=== PATIENT | male | born 1950 | race Caucasian/White ===

== ENCOUNTER 2021-11-15 15:29 | Observation (INO) ==
[2021-11-15 16:15] LABS: ABS Eosinophils 0.1 10^3/ul (0-0.6); ABS Lymphocytes 0.8 10^3/ul (1.0-4.8); ABS Monocytes 0.8 10^3/ul (0-0.8); ABS Neutrophils 8.3 10^3/ul (1.5-7.7); Eosinophil % 0.7 %; Hematocrit 43 % (42-52); Hemoglobin 15.1 g/dL (14.0-18.0); Lymphocyte % 8.2 %; Mean Corpuscular HGB Conc 35 g/dL (31-36); Mean Corpuscular Hemoglobin 30 pg (27-31); Mean Corpuscular Volume 86 fL (80-94); Nucleated Red Blood Cells % 0.1; Platelet Count 227 10^3/uL (150-450); Red Cell Distribution Width 14 % (10-15)
[2021-11-15 17:47] LABS: ALT 13 U/L (7-52); Albumin 4.4 g/dL (3.2-5.2); Albumin/Globulin Ratio 1.5 (1-3); Alkaline Phosphatase 66 U/L (35-149); Blood Urea Nitrogen 23 mg/dL (6-24); CO2 Carbon Dioxide 24 mmol/L (22-32); Chloride 104 mmol/L (101-111); Glucose 120 mg/dL (70-100); Sodium 137 mmol/L (135-145); Total Protein 7.4 g/dL (6.4-8.9); eGFR CKD-EPI 83.5 (>60)
[2021-11-15 17:54] LABS: Anion Gap 9 mmol/L (2-11)
[2021-11-15 18:00] LABS: TSH Ultra Thyroid Stim Horm 2.19 mcIU/mL (0.34-5.60)
[2021-11-15] MEDS ORDERED: NS 0.9% 1000 ml BAG 1,000 ML IV ONE (18:29)
[2021-11-15] MEDS ORDERED: Iohexol 350 (CONTRAST) 500 ML MDV IV ONE (18:32)
[2021-11-15 18:52] LABS: Potassium Redraw 4.2 mmol/L (3.5-5.0)
[2021-11-15] MEDS ORDERED: Ondansetron 4 mg VIAL 2 MG/ML 2 ml VIAL IV PRN (21:34)
[2021-11-16 05:57] LABS: ABS Eosinophils 0.1 10^3/ul (0-0.6); ABS Lymphocytes 1.6 10^3/ul (1.0-4.8); ABS Monocytes 0.7 10^3/ul (0-0.8); ABS Neutrophils 4.7 10^3/ul (1.5-7.7); Eosinophil % 1.8 %; Hematocrit 40 % (42-52); Hemoglobin 13.4 g/dL (14.0-18.0); Lymphocyte % 21.9 %; Mean Corpuscular HGB Conc 33 g/dL (31-36); Mean Corpuscular Hemoglobin 29 pg (27-31); Mean Corpuscular Volume 86 fL (80-94); Mean Platelet Volume 7.7 fL (7.4-10.4); Platelet Count 198 10^3/uL (150-450); Red Blood Count 4.69 10^6 /uL (4.18-5.48); Red Cell Distribution Width 14 % (10-15); White Blood Count 7.1 10^3/uL (3.5-10.8)
[2021-11-16 07:08] LABS: Calcium 8.4 mg/dL (8.6-10.3); HDL Cholesterol 38.3 mg/dL; Magnesium 1.9 mg/dL (1.9-2.7); Potassium 4.3 mmol/L (3.5-5.0); eGFR CKD-EPI 85.6 (>60)
[2021-11-16 07:29] LABS: Urine Appearance Clear; Urine Bilirubin Negative (Negative); Urine Blood Negative (Negative); Urine Color Yellow; Urine Glucose Negative (Negative); Urine Ketones Negative (Negative)
[2021-11-16 07:30] LABS: Urine Nitrite Negative (Negative); Urine Protein Negative (Negative); Urine Urobilinogen 0.2 (Negative) (Negative); Urine pH 5.5 (5.0-9.0)
[2021-11-16] MEDS ORDERED: Enoxaparin 40 MG/0.4 ML SYR SUBCUT SCH (09:00)
[2021-11-16] MEDS ORDERED: Gadoteridol (CONTRAST) 279.3 MG/ML 10 ML IV ONE (12:02)
[2021-11-16 16:50] VITALS: BP 152/80
== END 2021-11-16 16:50 | disposition short-term general hospital (02) ==
LOC: EDHOLD 15:29 → ED 15:29 → SUATTDRO 21:34 → EDHOLD 11-16 16:48
PROVIDERS: ADMIT Internal Medicine; ATTEND Family Medicine